=== PATIENT | female | born 1995 | race Caucasian/White ===

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

== ENCOUNTER → 2017-04-10 | Outpatient (CLI) | payer BC, OTHER ==
--- NOTE | 2017-04-10 19:21 | DIAGNOSTIC IMAGING REPORT ---
RIGHT ANKLE 3 VIEWS HISTORY: Right ankle PAIN COMPARISON: None. FINDINGS: No fracture or dislocation within the right ankle. Tiny ossific density along the dorsal aspect of the navicular bone consistent with an age-indeterminate avulsion injury. Soft tissues are unremarkable. No radiopaque foreign bodies. IMPRESSION: 1. No acute fracture or dislocation within the right ankle. 2. Tiny ossific density along the dorsal aspect of the navicular bone consistent with an age-indeterminate avulsion injury. Electronically signed by: Scotty Us M.D. 04/10/2017 7:20 PM Dictated Date/Time: 04/10/2017 7:18 PM
== END | disposition home or self-care (01) ==
LOC: C.RAD 18:51
PROVIDERS: ATTEND Orthopaedic Surgery Sports Medicine
DX: M25.571 Pain in right ankle and joints of right foot (principal); R93.7 Abnormal findings on diagnostic imaging of other parts of musculoskeletal system

== ENCOUNTER → 2017-04-12 | Outpatient (CLI) | payer BC, OTHER ==
--- NOTE | 2017-04-12 10:41 | DIAGNOSTIC IMAGING REPORT ---
R FOOT MIN 3 VIEWS CLINICAL HISTORY: Acute right foot pain following injury. COMPARISON: Right ankle radiographs April 10, 2017. FINDINGS: Tarsometatarsal joints are intact. A 3 mm ossific density along the dorsal navicular is noted. There is also subtle cortical irregularity of the dorsal navicular. No additional fractures are identified on this examination. There are bipartite medial and lateral sesamoids of the right great toe. IMPRESSION: 1. 3 mm ossific density along the dorsal navicular which represents an age indeterminate avulsion fracture. In addition, cortical irregularity of the dorsal navicular raises the possibility of an avulsion injury. 2. Bipartite medial and lateral sesamoids of the right great toe. Electronically signed by: Tobias Buenrostro M.D. 04/12/2017 10:40 AM Dictated Date/Time: 04/12/2017 10:25 AM
== END | disposition home or self-care (01) ==
LOC: C.RDSM 14:00
PROVIDERS: ATTEND Family Medicine
DX: M85.872 Other specified disorders of bone density and structure, left ankle and foot (principal); M79.672 Pain in left foot